=== PATIENT | male | born 1935 | race Caucasian/White ===

== ENCOUNTER 2016-10-28 05:46 | Emergency (ER) | payer OTHER, MEDICARE ==
[~2016-10-28] VITALS: Ht 180.3 cm; Wt 83.9 kg
[~2016-10-28 05:46] MED LIST: ACCUPRIL40 MG PO; ACETAMINOPHEN-1 EAC1 PO; ASA5UEC; ASA81BEC PO; ATIVAN0.5 MG PO; BACTRIM DS TAB1 EACH PO; BENICAR20 MG PO; BENICAR40 MG PO; BYSTOLIC 5 MG5 M1 PO; CENTRUM SILVER1 EAC4 PO; CIPROFLOXACIN500 M3 PO; CLOBETASOL PROP60 G3 TP; COUMADIN 5 MG TA5 M1 PO; CYCLOBENZAPRINE5 MG PO; FLEXERIL PO; FLOMAX PO; HYDROCHLOROTHIA25 M1 PO; HYDROCORTISONE3011; IMDUR 30 MG TAB30 M1 PO; LUVOX 50MG TABL50 MG PO; MULTAQ400 MG PO; NITROSTAT0.4 MG SL; NORCO 5-325 TA1 EACH PO; OMEGA-31000 MG PO; ORADENT 0.1% DEN5 G1 TOP; PACERONE 200 M200 M1 PO; PREDNISOLONE5 G1 OPHTHALMIC; PRILOSEC 20 MG20 MG PO; SAVAYSA30 MG PO; SIMVASTATIN40 MG PO; SIMVASTATIN80 MG PO; VANDAZOLE GEL 070 GM; [UNRECOGNIZED DRUG - OTHER] OPHTHALMIC
[2016-10-28 06:48] LABS: ABSOLUTE NEUTROPHILS 7.4 thou/uL (1.4-8.2); BASOPHILS 0.9 % (0.0-2.0); EOSINOPHILS 2.9 % (0.0-3.0); HEMATOCRIT 33.4 % (42.0-52.0); HEMOGLOBIN 10.5 gm/dL (14.0-18.0); LYMPHOCYTES 18.9 % (24.0-44.0); MCH 26.3 pg (26.0-34.0); MCHC 31.6 % (28.0-37.0); MCV 83.2 fL (80.0-100.0); MONOCYTES 7.6 % (1.0-8.0); PLATELET COUNT 271 thou/uL (150-400); POLYS 69.7 % (36.0-66.0); RBC 4.01 mil/uL (4.50-6.00); RDW 15.8 % (10.5-14.5); WBC 10.7 thou/uL (4.0-11.0)
[2016-10-28 06:53] LABS: CALCIUM 8.9 mg/dL (8.5-10.1); CREATININE 2.1 mg/dL (0.6-1.3); POTASSIUM 4.4 mmol/L (3.5-5.1)
[2016-10-28 06:55] LABS: MANUAL DIFF NO
[2016-10-28 07:00] LABS: ALBUMIN 3.7 g/dL (3.4-5.0); TOTAL BILIRUBIN 0.6 mg/dL (<0.1-1.0); TOTAL PROTEIN 7.4 g/dL (6.4-8.2); URIC ACID* 7.5 mg/dL (2.6-7.2)
[2016-10-28] MEDS ORDERED: NORCO 5-325 TA1 EACH PO (08:09)
[2016-10-28] MEDS ORDERED: SENOKOT-S1 TA1 PO (08:09)
[2016-10-28] MEDS ORDERED: KEFLEX500 MG PO (08:09)
[2016-10-28 08:30] VITALS: BP 163/63
== END 2016-10-28 08:45 | disposition home or self-care (01) ==
LOC: ER 05:46
PROVIDERS: Emergency Medicine
DX: M79.671 Pain in right foot (principal); I10 Essential (primary) hypertension; I48.91 Unspecified atrial fibrillation; Z88.1 Allergy status to other antibiotic agents; Z88.6 Allergy status to analgesic agent; Z88.8 Allergy status to other drugs, medicaments and biological substances

== ENCOUNTER → 2017-03-12 | Outpatient (CLI) | payer OTHER, MEDICARE ==
[~2017-03-12] VITALS: Ht 180.3 cm; Wt 83.9 kg
[~2017-03-12] MED LIST changes: +CORMAX50 ML TOP; +KEFLEX500 MG PO; +MUCINEX TA600 MG/TA2 PO; +PACERONE 200 M200 MG PO; +SARNA ANTI-ITC222 ML TOP; +SENOKOT-S1 TA1 PO; +TESSALON PERLE100 MG PO; +ZANTAC 150MG T150 MG PO; +ZEASORB71 GM TOP
--- NOTE | ~2017-03-12 | P ---
[facility] [place] [address] [address] [place] [address] PROCEDURE REPORT Name: JEANNIE SZYMANSKI [id number] Admission: 03/12/17 Attend Phys: Bharathi Dacosta MD Discharge: Date of : 39 Report #: [id number] THIS REPORT FOR: //name// CC: Zeke Iverson MD [facility] Bharathi Gallagher MD OUTPATIENT COLONOSCOPY REPORT BRIEF HISTORY: The patient is a 81-year-old male with a history of rectal carcinoid, status post surgery 9 years ago. He has intermittent rectal bleeding. He is on anticoagulation. PREOPERATIVE DIAGNOSIS: History of carcinoid and rectal bleeding. POSTOPERATIVE DIAGNOSES: 1. Moderately severe left-sided diverticulosis coli. 2. Small internal hemorrhoids. 3. Unremarkable rectal anastomosis. MEDICATIONS: Deep sedation with propofol per anesthesia. SPECIMEN: None. ESTIMATED BLOOD LOSS: None. PROCEDURE: Colonoscopy to cecum and terminal ileum. FINDINGS: Prior to propofol sedation, procedure of colonoscopy was discussed with the patient as well as potential risks and its complications. He indicates he understands and desires to proceed. DESCRIPTION OF PROCEDURE: With the patient in left lateral decubitus position, digital examination was completed, which revealed no abnormalities. Subsequently, the [employer] video colonoscope was introduced into the rectum and advanced under direct vision to the cecum. Done with minimal difficulty. Cecum was identified by the ileocecal valve and the appendiceal orifice. I was able to visualize the distal segment of terminal ileum, which was inspected and noted to be unremarkable. At that point, the scope was slowly withdrawn and careful circumferential views obtained. Examination terminal ileum revealed normal mucosa. As the scope was withdrawn, the prep was noted to be excellent. The mucosa was normal limits, normal vascular pattern, normal light reflex. No neoplastic inflammatory changes were seen. He had normal mucosa throughout the entire colon. The scope was withdrawn to the left colon, there was noted to be moderately severe diverticular disease without endoscopic evidence of diverticulitis. Scope was withdrawn in the rectum and was noted to have [facility] [address] [place] [address] PROCEDURE REPORT Name: JEANNIE SZYMANSKI Room #: REG [facility].#: [id number] Admission: 03/12/17 Attend Phys: Bharathi Dacosta MD Discharge: Date of : 39 Report #: [id number] moderately severe diverticular disease without endoscopic evidence of diverticulitis. Scope was drawn in the rectum and in the rectum unremarkable surgical anastomosis was seen from his resection for his rectal carcinoid. Upon retroflexion, small hemorrhoids were seen. Scope was withdrawn. The patient tolerated the procedure well. CONDITION OF THE PATIENT UPON DISCHARGE: Following procedure, the patient drowsy, aroused, conversant and will be discharged home when fully ambulatory. INSTRUCTIONS TO THE PATIENT AND FAMILY AT THE TIME OF DISCHARGE: No neoplastic or inflammatory changes were seen. At this point in life, he is not likely to benefit from continued routine surveillance examination. His bleeding is likely hemorrhoidal in etiology. Suggest high fiber diet. He will return to care of Dr. Robbie Gallagher. He should return to see me on an as needed basis. Last colonoscopy was about 5 years ago. Withdrawal time from the cecum was 12 minutes. <ELECTRONICALLY SIGNED> By: Bharathi Dacosta MD 03/13/17 1216 [id number] [id number] Bharathi Dacosta MD /nt
--- NOTE | ~2017-03-12 | P ---
[facility] [place] [address] [place] [address] PROCEDURE REPORT Name: JEANNIE SZYMANSKI Room #: REG [facility]#: [id number] Admission: 03/12/17 Attend Phys: Bharathi Dacosta MD Discharge: Date of : 39 Report #: [id number] THIS REPORT FOR: //name// CC: Zeke Iverson MD [facility] Bharathi Gallagher MD BRIEF HISTORY: The patient is a 81-year-old male known to me with longstanding history of reflux symptoms. He has been on omeprazole. Recently, he has had an atypical burning chest pain. He has had a recent nuclear stress which the patient reports to me was negative. He has known coronary disease and intracoronary stents. In addition, he has intermittent difficulty with swallowing, in particular solids such as apple. PREOPERATIVE DIAGNOSES: Atypical chest pain and dysphagia. POSTOPERATIVE DIAGNOSES: 1. Mild diffuse erythematous gastritis, stable. 2. Dysphagia. MEDICATIONS: Deep sedation with propofol per anesthesia. SPECIMEN: None. ESTIMATED BLOOD LOSS: None. PROCEDURE: EGD and Philip dilation. FINDINGS: Prior to propofol sedation, procedure of upper endoscopy was discussed with the patient as well as potential risks and its complications. He indicates he understands and desires to proceed. DESCRIPTION OF PROCEDURE: With the patient in left lateral decubitus position, the [employer] video endoscope was inserted into the cervical esophagus under direct vision without difficulty. Examination of this organ through its entire length revealed normal esophageal mucosa down the squamocolumnar junction. Squamocolumnar junction was inspected and noted to be unremarkable. No evidence of ulcers, erosions, or mass lesions. Hiatus hernia was not seen. There is no evidence of Tellez mucosa. A stricture was not seen. Scope was advanced into the stomach, which was examined on end view as well as retroflexed views. There was erythema in the antrum of stomach, which had been previously noted and stable. No evidence of ulcers, erosions. There were no retained solids or liquids within the stomach. Upon retroflexion, no mass lesions were seen. Hiatus hernia was not seen. The pylorus, duodenal bulb and postbulbar sweep were inspected and noted to be within normal limits. At that point, the scope was slowly withdrawn, and careful circumferential views confirmed the above [address] [address] PROCEDURE REPORT Name: JEANNIE SZYMANSKI [id number] Admission: 03/12/17 Attend Phys: Bharathi Dacosta MD Discharge: Date of : 39 Report #: [id number] finding. The patient tolerated the procedure well. Following the procedure, he was dilated with 50-[place] Philip dilator due to his symptoms of dysphagia. CONDITION OF THE PATIENT UPON DISCHARGE: Following procedure, the patient was drowsy and arousable. He was then prepared for colonoscopy. DISCHARGE INSTRUCTIONS: Instructions were given to the patient and family at the time of discharge. At this point in time, we will have him continue his omeprazole. As time goes on, he may be able to reduce the dosage. He was dilated empirically as noted above. If he should have further problems with dilation, dilation may be repeated on an as-needed basis. We will proceed with colonoscopy at this time. <ELECTRONICALLY SIGNED> By: Bharathi Dacosta MD 03/13/17 1216 0751 0901 Bharathi Dacosta MD /nt
== END ==
LOC: GI 06:45
DX: K62.5 Hemorrhage of anus and rectum (principal); K57.30 Diverticulosis of large intestine without perforation or abscess without bleeding; K64.8 Other hemorrhoids; Z85.040 Personal history of malignant carcinoid tumor of rectum; Z98.0 Intestinal bypass and anastomosis status; K21.9 Gastro-esophageal reflux disease without esophagitis; R13.10 Dysphagia, unspecified; K29.70 Gastritis, unspecified, without bleeding; F41.8 Other specified anxiety disorders; I10 Essential (primary) hypertension; E78.00 Pure hypercholesterolemia, unspecified; I48.91 Unspecified atrial fibrillation; M10.9 Gout, unspecified; Z98.42 Cataract extraction status, left eye
CPT/HCPCS: 62110; 62900

== ENCOUNTER 2018-12-17 13:08 | Emergency (ER) | payer OTHER, MEDICARE ==
[~2018-12-17] VITALS: Ht 180.3 cm; Wt 83.2 kg
[2018-12-17] MEDS ORDERED: BETAMETHASONE D15 G1 TOP (15:37)
[2018-12-17] MEDS ORDERED: ELIQUIS2.5 MG PO (15:37)
[2018-12-17] MEDS ORDERED: ZEASORB71 GM TOP (15:38)
[2018-12-17] MEDS ORDERED: SARNA ANTI-ITC222 ML TOP (15:38)
[2018-12-17] MEDS ORDERED: TYLENOL EXTRA500 MG PO (15:39)
[2018-12-17] MEDS ORDERED: VITAMINC500 PO (15:40)
[2018-12-17] MEDS ORDERED: SLOW FE 160MG160 MG PO (15:40)
[2018-12-17] MEDS ORDERED: VITAMIN D3400 UNIT PO (15:40)
[2018-12-17] MEDS ORDERED: COQ-10100 MG PO (15:40)
[2018-12-17 15:43] VITALS: BP 153/78
== END 2018-12-17 15:45 | disposition home or self-care (01) ==
LOC: ER 13:08
DX: S51.812A Laceration without foreign body of left forearm, initial encounter (principal); S50.01XA Contusion of right elbow, initial encounter; S09.8XXA Other specified injuries of head, initial encounter; I48.91 Unspecified atrial fibrillation; I10 Essential (primary) hypertension; E78.00 Pure hypercholesterolemia, unspecified; F32.9 Major depressive disorder, single episode, unspecified; F41.9 Anxiety disorder, unspecified; M10.9 Gout, unspecified; Z88.1 Allergy status to other antibiotic agents; Z88.8 Allergy status to other drugs, medicaments and biological substances; Z95.5 Presence of coronary angioplasty implant and graft; W18.2XXA Fall in (into) shower or empty bathtub, initial encounter; Y93.E1 Activity, personal bathing and showering; Y92.89 Other specified places as the place of occurrence of the external cause; Y99.8 Other external cause status

== ENCOUNTER 2018-12-21 22:31 | Emergency (ER) | payer OTHER, MEDICARE ==
[~2018-12-21] VITALS: Ht 180.3 cm; Wt 83.5 kg
[~2018-12-21 22:31] MED LIST changes: +BETAMETHASONE D15 G1 TOP; +COQ-10100 MG PO; +ELIQUIS2.5 MG PO; +SLOW FE 160MG160 MG PO; +TYLENOL EXTRA500 MG PO; +VITAMIN D3400 UNIT PO; +VITAMINC500 PO
[2018-12-22] MEDS ORDERED: KEFLEX500 M1 PO (00:21)
[2018-12-22 00:42] VITALS: BP 175/82
== END 2018-12-22 00:44 | disposition home or self-care (01) ==
LOC: ER 22:31
DX: S50.02XA Contusion of left elbow, initial encounter (principal); S50.12XA Contusion of left forearm, initial encounter; Z88.1 Allergy status to other antibiotic agents; Z88.8 Allergy status to other drugs, medicaments and biological substances; I48.91 Unspecified atrial fibrillation; I10 Essential (primary) hypertension; E78.00 Pure hypercholesterolemia, unspecified; F42.9 Obsessive-compulsive disorder, unspecified; F32.9 Major depressive disorder, single episode, unspecified; F41.9 Anxiety disorder, unspecified; M10.9 Gout, unspecified; Z95.5 Presence of coronary angioplasty implant and graft; W18.2XXA Fall in (into) shower or empty bathtub, initial encounter; Y92.89 Other specified places as the place of occurrence of the external cause; Y93.89 Activity, other specified; Y99.8 Other external cause status

== ENCOUNTER → 2019-10-17 | Outpatient (CLI) | payer OTHER, MEDICARE ==
[~2019-10-17] MED LIST changes: +KEFLEX500 M1 PO
== END ==
LOC: SJCVC 13:19
DX: R94.31 Abnormal electrocardiogram [ECG] [EKG] (principal); I48.0 Paroxysmal atrial fibrillation; I25.10 Atherosclerotic heart disease of native coronary artery without angina pectoris; I10 Essential (primary) hypertension; E78.00 Pure hypercholesterolemia, unspecified; I65.23 Occlusion and stenosis of bilateral carotid arteries; Z79.2 Long term (current) use of antibiotics; Z79.01 Long term (current) use of anticoagulants; Z79.899 Other long term (current) drug therapy